=== PATIENT | female | born 1950 | race Caucasian/White ===

== ENCOUNTER 2017-03-06 08:03 | Day surgery (SDC) | payer BC, OTHER ==
[2017-02-24 15:13] VITALS: BMI 29.5
[2017-03-06] MEDS ORDERED: PROPOFOL 20 ML ONE (08:20)
[2017-03-06 10:34] VITALS: PULSE 64; TEMP 97.6
[2017-03-06 10:38] VITALS: BP 128/56
--- NOTE | 2017-03-07 12:25 | PATH ---
Surgical Pathology Report Patient Name: RODY WARREN [facility]. Rec. #: [id number] /Age/Gender: 1950 (Age: 66) / F Account: [id number] Location: [facility]-ENDOSCOPY Taken: 03/06/2017 Received: 03/06/2017 Reported: 03/07/2017 Physicians: Jovan Sofia M.D. Specimen(s) Received A: DUODENUM B: ANTRUM C: POLYP ANTRIUM Clinical History Peptic ulcer disease Polyp antrum, gastritis Final Diagnosis A. DUODENUM, BIOPSY: DUODENAL MUCOSA WITH NO PATHOLOGIC CHANGES. NO HISTOLOGIC EVIDENCE OF GLUTEN SENSITIVE ENTEROPATHY (CELIAC SPRUE) IDENTIFIED. B. STOMACH, ANTRUM, BIOPSY: MILD CHRONIC GASTRITIS. IMMUNOSTAIN FOR H. PYLORI IS NEGATIVE. C. STOMACH, ANTRAL POLYP, POLYPECTOMY: HYPERPLASTIC FUNDIC GLAND POLYP WITH MILD CHRONIC GASTRITIS. NO ADENOMATOUS CHANGE IDENTIFIED. IMMUNOSTAIN FOR H. PYLORI IS NEGATIVE. Electronically Signed Devante Hanson M.D. Gross Description A. Received in formalin, labeled "duodenum" are 2 claros, irregular portions of soft tissue averaging 0.4 cm. in greatest dimension. The specimens are submitted in toto in one cassette. B. Received in formalin, labeled "antrum" are 2 claros, irregular portions of soft tissue measuring 0.3 and 0.4 cm. in greatest dimension. The specimens are submitted in toto in one cassette. C. Received in formalin labeled "polyp antrum," is a 1.0 x 0.6 x 0.6 cm claros-brown, polypoid portion of soft tissue. The base is inked blue and the specimen is bisected. The specimen is entirely submitted in one cassette. 03/06/201703/06/2017
== END 2017-03-06 11:00 | disposition home or self-care (01) ==
LOC: FASU-ENDO 08:03
PROVIDERS: ATTEND Internal Medicine Gastroenterology
PROC: 3E0G8GC Introduction of Other Therapeutic Substance into Upper GI, Via Natural or Artificial Opening Endoscopic (ICD-10-PCS; 2017-03-06)
PROC: 0DB68ZX Excision of Stomach, Via Natural or Artificial Opening Endoscopic, Diagnostic (ICD-10-PCS; principal; 2017-03-06 09:35)
PROC: 0DB98ZX Excision of Duodenum, Via Natural or Artificial Opening Endoscopic, Diagnostic (ICD-10-PCS; 2017-03-06 09:35)
PROC: 0DB68ZX Excision of Stomach, Via Natural or Artificial Opening Endoscopic, Diagnostic (ICD-10-PCS; 2017-03-06 09:35)
DX: K29.50 Unspecified chronic gastritis without bleeding (principal); K31.7 Polyp of stomach and duodenum
CPT/HCPCS: 88305-TC; 88342-TC